=== PATIENT | female | born 1965 | race Caucasian/White ===

== ENCOUNTER 2025-10-15 15:43 | Emergency (ER) | payer OTHER, MEDICAID ==
[~2025-10-15] VITALS: Ht 167.6 cm; Wt 69.2 kg
[2025-10-15 16:02] VITALS: BP 172/91; PULSE 71; O2SAT 97
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
[2025-10-15 19:08] VITALS: RESP 16
[2025-10-15] MEDS: ketorolac trometh 15mg/ml vial 15 MG/ML ML IM ONE (19:08)
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
[2025-10-15] MEDS ORDERED: CYCL-1 PO (20:25)
[2025-10-15] MEDS ORDERED: LIDO-52 TOP (20:25)
[2025-10-15] MEDS ORDERED: IBUP-1986 PO (20:25)
[2025-10-15 20:30] VITALS: TEMP 99
== END 2025-10-15 20:31 | disposition home or self-care (01) ==
LOC: ER 15:44
DX: M54.2 Cervicalgia (principal); M54.50 Low back pain, unspecified; Z90.49 Acquired absence of other specified parts of digestive tract; Z79.899 Other long term (current) drug therapy
CPT/HCPCS: 72040; 72100; 96372; 99284; J1885

== ENCOUNTER 2025-10-24 12:27 | Emergency (ER) | payer OTHER, MEDICAID ==
[~2025-10-24] VITALS: Ht 167.6 cm; Wt 69.0 kg
[~2025-10-24 12:27] MED LIST: CYCL-1 PO; IBUP-1986 PO; LIDO-52 TOP
[2025-10-24 12:44] VITALS: BP 153/95; PULSE 85; RESP 18; O2SAT 97
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
--- NOTE | 2025-10-24 14:02 | RADIOLOGY REPORT ---
CLINICAL INDICATION: Right hip pain TECHNIQUE: 3 radiographic views of the right hip were obtained. COMPARISON: None FINDINGS/IMPRESSION: There is no evidence of acute fracture or dislocation. The visualized joint space is well maintained. The alignment is anatomical. There is no radiopaque foreign body. Moderate to large amount of fecal material within the colon.
[2025-10-24 14:31] VITALS: TEMP 97.9
== END 2025-10-24 14:37 | disposition home or self-care (01) ==
LOC: ER 12:27
DX: M25.551 Pain in right hip (principal); X58.XXXA Exposure to other specified factors, initial encounter; Y93.89 Activity, other specified; Y92.410 Unspecified street and highway as the place of occurrence of the external cause; Y99.8 Other external cause status
CPT/HCPCS: 73502; 99283

== ENCOUNTER 2025-11-12 18:16 | Emergency (ER) | payer MEDICAID ==
[~2025-11-12] VITALS: Ht 167.6 cm; Wt 68.4 kg
--- NOTE | 2025-11-12 21:35 | Physician Documentation ---
History of Present Illness ~ Chief Complaint: See Chief Complaint Stated Complaint: "FLASHING LIGHT ON THE RIGHT SIDE OF EYE" Time Seen by MD: 21:29 Primary Medical Doctor: Chandler pedraza HPI 60-year-old female presenting with a right sided vision disturbance. Patient states that around 430 today she noticed some flashing in her right eye. She was just sitting at home and not doing anything in particular. This has continued that waxed and waned. She still currently has not although it has decreased. She states that she can see but they are flashing lights looking out of her right eye. The left eye is fine. She denies any pain. Denies any headache, dizziness, unsteadiness, nausea, vomiting, generalized weakness, limb weakness, numbness or tingling or any other associated symptoms. She is generally healthy with no other medical conditions. Medication Reconciliation Allergies: Coded Allergies: No Known Allergies (Unverified , 10/24/25) Scheduled Cyclobenzaprine* (Cyclobenzaprine*), 1 TAB PO TID Ibuprofen (Ibuprofen), 1 TAB PO Q8H Lidocaine (Lidoderm), 1 PATCH TOP DAILY Lidocaine (Lidoderm), 1 PATCH TOP DAILY Past Medical History Past Medical History: No Pertinent History Physical Exam Vital Signs: Temperature: 98.6, Heart Rate: 77, Respiratory Rate: 18, BP: 144/86, Pulse Oximetry: 95, Weight: 68.400 Oxygen Flow Rate: 0 General Appearance I have reviewed the triage vitals. CONST: Well developed and well nourished. In no acute distress HENT: Head Atraumatic EYES: Pupils are equal, round and reactive to light. Normal conjunctiva NECK: Normal range of motion. Supple. CARDIO: Normal rate and regular rhythm. No murmurs, rubs, or gallops. S1, S2. PULM/CHEST: No respiratory distress. Lungs clear to auscultation. No wheeze ABD: Soft and nontender. Nondistended. Bowel sounds normal. No guarding. : Exam deferred MSK: No edema. No deformity. NEURO: Alert and oriented to person, place and time. Moving all extremities SKIN: Warm and dry. PSYCH: Normal mood and affect. Good eye contact. Progress Results/Orders Reviewed/noted all lab results: Yes Results/Orders Orders - KETAN COUGHLIN MD Electrocardiogram (11/12/25 21:30) Ct Head (11/12/25 22:20) Cta Neck/Head (11/12/25 23:00) Ct Orbits (11/12/25 22:30) [place] [facility] (11/12/25 22:03) Completed Orders - KETAN COUGHLIN MD MG (11/12/25 21:30) Electrocardiogram (11/12/25 21:30) BMP (11/12/25 21:30) Hs Troponin I W Calculations (11/12/25 21:30) Hs Troponin I W Calculations (11/12/25 23:30) Ct Head (11/12/25 22:20) Cta Neck/Head (11/12/25 23:00) Normal Saline 1000ml (0.9% Sodium Chlori (11/12/25 21:35) Iohexol 350mg/Ml 100ml (Omnipaque 350mg/ (11/12/25 21:36) Ct Orbits (11/12/25 22:30) [place] [facility] (11/12/25 22:03) Cbc/Diff (11/12/25 22:19) ESR (11/12/25 22:19) Aspirin 81mg Chew Tablet (Aspirin 81mg C (11/12/25 22:55) Metoclopramide Inj (Reglan Inj) (11/13/25 00:00) Ketorolac Trometh 30mg/Ml Vial (Toradol (11/13/25 00:15) Vital Signs 11/12/25 11/12/25 11/13/25 11/13/25 18:32 23:00 00:03 01:38 Temp 98.6 98.6 Pulse 77 65 68 Resp 18 16 14 B/P (MAP) 144/86 153/97 (115) 154/87 (109) Pulse Ox 95 97 97 O2 Flow Rate 0 0 0 11/13/25 02:39 Temp 98.6 Pulse 73 Resp 14 B/P (MAP) 142/75 Pulse Ox 94 Laboratory Tests Test 11/12/25 21:45 11/12/25 22:56 11/13/25 00:08 CBC Comment Sodium Level 142 Potassium Level 3.7 Chloride Level 109 H Carbon Dioxide Level 23.8 L Anion Gap 9 Blood Urea Nitrogen 18 Creatinine 0.83 Estimated GFR/1.73 m2 70 BUN/Creatinine Ratio 21.7 H Glucose Level 98 Calcium Level 10.0 Magnesium Level 2.2 Troponin I High Sensitivity 4 4 Albumin 4.2 Chemistry Comments White Blood Count 8.1 Red Blood Count 4.68 Hemoglobin 14.4 Hematocrit 42.1 Mean Corpuscular Volume 90.1 Mean Corpuscular Hemoglobin 30.7 Mean Corpuscular Hemoglobin Concent 34.1 Red Cell Distribution Width 13.4 Platelet Count 258 Mean Platelet Volume 7.9 Neutrophils (%) (Auto) 55.2 Lymphocytes (%) (Auto) 37.1 Monocytes (%) (Auto) 4.6 Eosinophils (%) (Auto) 2.3 Basophils (%) (Auto) 0.8 Neutrophils # (Auto) 4.4 Lymphocytes # (Auto) 3.0 Monocytes # (Auto) 0.4 Eosinophils # (Auto) 0.2 Basophils # (Auto) 0.1 Erythrocyte Sedimentation Rate 5 Troponin I High Sens Percent Delta 0 Troponin I Hi Sens Absolute Change 0 EKG/XRAY/CT/US/VASC/MRI EKG : Additional Comment EKG as interpreted by ED MD indicating normal sinus rhythm with a rate of 65 beats per minute, normal axis, no ischemia, QT prolongation Medical Decision Making Additional information obtaine: N/A Findings 1 Differential Dx:Considerations: Include: Em's Palsey, CVA, TIA Additional Information 60-year-old female presenting with right sided vision disturbance. Initially there was some concern for CVA versus TIA but a head CT noncontrast and follows a CTA were negative. I also considered potential temporal arteritis however patient had a normal ESR. Patient's lab workup is grossly unremarkable. Imaging as mentioned is unremarkable as well. I did consult Neurology via [facility] who assessed the patient. They do not believe that this is a TIA or CVA rather likely a complex migraine or potentially a tension or cluster headache. Patient was given 1 L of IV normal saline as well as 10 mg of IV Reglan and 30 mg of IV Toradol with good improvement of symptoms. She still has some blurry vision however it is slightly improved. Patient's eye exam is normal. She has normal pressures as well as normal intra-ocular eye movements. I do not have very high concern for retinal detachment or acute glaucoma. However I do believe the patient should follow up with an investigation division sergeant for further evaluation. This point there is no indication for any emergent intervention. Patient may be safely discharged home with follow up with Ophthalmology in the next 1-2 days. She was advised to return to the ED with any acutely worsening symptoms. Departure Disposition: 01 HOME / SELF CARE / HOMELESS Impression: Primary Impression: Migraine variant with headache Additional Impression: Vision disturbance Condition: Improved Discharge Instructions: Migraine Headache Additional Instructions: Please drink plenty of fluids and get plenty of rest. You may take ibuprofen or Tylenol as needed for headaches. Please follow up closely with an investigation division sergeant in the next 2-3 days. Return to the ED with any acutely worsening symptoms. Referrals: NO PRIMARY CARE PROVIDER (PCP) Signature Scribe Signature: 1 Attestation: The note accurately reflects work and decisions made by me.Ketan Barclay MD 11/13/25 01:51 KETAN COUGHLIN MD Nov 12, 2025 21:35
--- NOTE | 2025-11-12 21:39 | ELECTROCARDIOGRAPH REPORT ---
[facility] Test Date: 2025-11-12 Test Time: 21:36:59 Pat Name: HERVE MEDRANO Department: [facility]- Patient ID: [facility]-[id number] Room: Gender: F [employer]: : [id number] Requested By: JERMAINE COUGHLIN Order Number: [id number] Reading MD: Dr. Leandro Davies Measurements Intervals [place] Rate: 65 P: 0 CO: 0 QRS: 65 QRSD: 94 T: 57 QT: 457 QTc: 476 Interpretive Statements Atrial flutter with predominant 4:1 AV block Electronically Signed On 11-13-2025 7:35:[address] Leandro Davies Please click the below link to view image of tracing.
[2025-11-12 22:20] LABS: CREATININE 0.83 MG/DL (0.40-0.90); TOTAL CARBON DIOXIDE 23.8 MMOL/L (24-32); eCRCL 66 ML/MIN; eGFR 70 ML/MIN
--- NOTE | 2025-11-12 22:53 | RADIOLOGY REPORT ---
EXAM: CT CT HEAD INDICATION: right vision disturbance TECHNIQUE: CT of the head without intravenous contrast. Radiation Dose Information: CT Dose: CTDI volume is 60.74 mGy. Dose-length product is 990.58 mGy*cm The dose indicators for CT are the volume Computed Tomography (CT) Dose Index (CTDIvol) and the Dose Length Product (DLP), and are measured in units of mGy and mGy-cm, respectively. These indicators are not patient dose, but values generated from the CT scanner acquisition factors. The report includes radiation exposure data for exposures received during this examination. COMPARISON: None FINDINGS: There is no evidence of acute intracranial hemorrhage, extra-axial collection, mass effect, midline shift, herniation or hydrocephalus. The ventricles, sulci and cisterns are age appropriate. The sandy-white differentiation is intact. Patchy periventricular and subcortical white matter hypoattenuation is nonspecific but may be related to small vessel ischemic disease. The visualized paranasal sinuses and mastoid air cells are clear. The surrounding soft tissues and osseous structures are unremarkable. IMPRESSION: No acute intracranial abnormality.
[2025-11-12] MEDS: normal saline 1000ml 1,000 ML IV ONE (22:58)
[2025-11-12 23:05] LABS: MEAN PLATELET VOLUME 7.9 FL (7.4-10.4); RED CELL DISTRIBUTION WIDTH 13.4 % (11.5-14.5)
--- NOTE | 2025-11-12 23:15 | RADIOLOGY REPORT ---
INDICATION: right eye blurry vision EXAM DATE: 11/12/2025 10:22 PM COMPARISON: None TECHNIQUE: CT of the orbits without intravenous contrast. RADIATION DOSE: CTDIvol: mGy, DLP: mGy*cm FINDINGS: The orbits, globes and extraocular muscles appear unremarkable. No evidence of fracture. Paranasal sinuses, mastoid air cells, and middle ear cavities. Surrounding soft tissues and osseous structures are unremarkable. IMPRESSION: No abnormality demonstrated.
--- NOTE | 2025-11-12 23:38 | RADIOLOGY REPORT ---
INDICATION: right vision disturbance COMPARISON: CT CT HEAD on DOS: 11/12/25 TECHNIQUE: CTA head without and with intravenous contrast. CTA neck with intravenous contrast. 3D image postprocessing was performed on a dedicated workstation and images were used for interpretation and reporting. Radiation Dose Information: CT Dose: CTDI volume is mGy. Dose-length product is mGy*cm FINDINGS: CTA Head: Intracranial ICAs: No abnormality demonstrated. MCAs: No abnormality demonstrated. ACAs: No abnormality demonstrated. Intracranial vertebral arteries: No abnormality demonstrated. Left dominant Basilar artery: No abnormality demonstrated. quality improvement manager: No abnormality demonstrated. CTA Neck: Origins of great vessels: No abnormality demonstrated. Right carotid: No abnormality demonstrated. Left carotid: No abnormality demonstrated. Right vertebral: No abnormality demonstrated. Left vertebral: No abnormality demonstrated. Dominant. Limited visualized lung apices are clear. Surrounding soft tissues and osseous structures are otherwise unremarkable. Mild cervical spondylosis without spinal canal stenosis. IMPRESSION: No abnormality demonstrated. All CT scans at this medical facility are performed using dose modulation techniques as appropriate to a performed exam including the following: Automated exposure control was utilized; adjustment of the MA and/or KV according to patient size; and use of iterative reconstruction technique.
--- NOTE | 2025-11-12 23:40 | [facility] CONSULT REPORT ---
[facility] Note # Demographics Consult Type: General Neurology Patient Location: Emergency Room First Name: HERVE Last Name: MARCELA Date of : 1965 Age: 60 Gender: Female Facility: [facility] Time of Initial Page (): 11/12/2025 23:22 First Contact with Site (): 11/12/2025 23:22 Phone Only Consult: 60 y/o woman who approx 7-8 hours ago noticed flashing lights in the right eye. Does have right temporal tenderness. CT head negative. CTA pending. ESR pending. Consider migraine treatment and ophthalmology follow-up if CTA and ESR negative. Phone Agreement: - phone consult deemed mutually sufficient for patient care # Assessment Impression: - Other # Plan Other: - If patient has any neurological deterioration please call me back immediately # Logistics Attestation of consult completion: The patient is located at: [facility]. I performed this phone consultation from my offsite office Total time spent in telemedicine encounter: I spent 5 minutes in reviewing clinical data and/or imaging, obtaining history, communicating with the onsite care team, and in preparation of this report. # Demographics First Name: HERVE Last Name: MARCELA Facility: [facility] Electronically signed at 11/12/2025 23:39 () by Vinny Wolfe MD
[2025-11-13] MEDS: metoclopramide 5 mg/ml inj IV ONE (00:37)
[2025-11-13] MEDS: ketorolac trometh 30MG/ML vial 30 MG/ML VIAL IV ONE (00:38)
[2025-11-13 02:39] VITALS: BP 142/75; PULSE 73; RESP 14; TEMP 98.6; O2SAT 94
== END 2025-11-13 02:41 | disposition home or self-care (01) ==
LOC: ER 18:17
DX: G43.909 Migraine, unspecified, not intractable, without status migrainosus (principal); H53.9 Unspecified visual disturbance; Z79.899 Other long term (current) drug therapy
CPT/HCPCS: 36415; 70450; 70480; 70496; 70498; 80048; 83735; 84484; 85025; 85651; 93005; 96361; 96374; 96375; 99285; J1885; J2765; J7030; Q9967